=== PATIENT | male | born 1945 | race Caucasian/White ===

== ENCOUNTER 2018-12-05 02:08 | Outpatient (CLI) | payer BC, SELFPAY ==
[2018-12-05 11:59] LABS: Anion Gap 9.7 mmol/L (3-11); BUN 19 mg/dL (7-18); CO2 28.3 mmol/L (21.0-32.0); CREATININE 0.98 mg/dL (0.70-1.30); Calcium 9.4 mg/dL (8.5-10.1); Chloride 103 mmol/L (98-107); Cholesterol 301 mg/dL (50-200); Glucose 98 mg/dL (70-100); HDL Cholesterol 95 mg/dL (40-60); LDL CHOLESTEROL 187 mg/dL (<100); Potassium 4.3 mmol/L (3.5-5.1); Sodium 141 mmol/L (136-145); Triglyceride 76 mg/dL (30-150)
== END 2018-12-05 02:28 ==
PROVIDERS: PCP Family Medicine; Visit Provider Family Medicine
DX: E78.5 Hyperlipidemia, unspecified (principal)
CPT/HCPCS: 36415; 80048; 80061; 83721

== ENCOUNTER 2019-12-04 02:24 | Outpatient (CLI) | payer BC, SELFPAY ==
[2019-12-04 10:56] LABS: Calculated LDL 175 mg/dL (<100); Cholesterol 280 mg/dL (<200); HDL Cholesterol 92 mg/dL (40-60); Triglyceride 65 mg/dL (<150)
== END 2019-12-04 02:44 ==
PROVIDERS: PCP Family Medicine; Visit Provider Family Medicine
DX: E78.5 Hyperlipidemia, unspecified (principal)
CPT/HCPCS: 36415; 80061

== ENCOUNTER 2020-12-15 03:33 | Outpatient (CLI) | payer BC, SELFPAY ==
[2020-12-15 12:33] LABS: HCT 42.1 % (40.0-50.0); MCH 30.4 pg (27.0-33.0); MCHC 33.3 % (32.0-36.0); MCV 91.3 fL (80-95); MPV 11.6 fL (8.0-11.0); Platelet Count 115 10^3/uL (130-400); RBC 4.61 10^6/uL (4.36-5.78); RDW 12.6 % (11.8-14.1); RDW-SD 42.3 fL; WBC 3.99 10^3/uL (4.4-10.8)
[2020-12-15 12:49] LABS: ALT 22 U/L (16-63); AST 23 U/L (15-37); Albumin 3.8 g/dL (3.4-5.0); Alkaline Phosphatase 55 U/L (46-116); Anion Gap 8.3 mmol/L (3-11); BUN 19 mg/dL (7-18); Bilirubin, Total 0.7 mg/dL (0.2-1.0); CO2 27.7 mmol/L (21.0-32.0); CREATININE 1.1 mg/dL (0.70-1.30); Calcium 9.1 mg/dL (8.5-10.1); Calculated LDL 160 mg/dL (<100); Chloride 106 mmol/L (98-107); Cholesterol 257 mg/dL (<200); Glucose 97 mg/dL (74-106); HDL Cholesterol 80 mg/dL (40-60); Potassium 4.2 mmol/L (3.5-5.1); Sodium 142 mmol/L (136-145); Total Protein 7.2 g/dL (6.4-8.2); Triglyceride 86 mg/dL (<150)
== END 2020-12-15 03:34 | disposition home or self-care (01) ==
LOC: LOS 03:34
PROVIDERS: PCP Family Medicine; Visit Provider Nurse Practitioner Family
DX: Z00.00 Encounter for general adult medical examination without abnormal findings (principal); E78.2 Mixed hyperlipidemia
CPT/HCPCS: 36415; 80053; 80061; 85027

== ENCOUNTER 2021-12-21 03:00 | Outpatient (CLI) | payer BC, SELFPAY | END 2021-12-21 03:01 | disposition home or self-care (01) | LOC: LBO 03:00 | PROVIDERS: PCP Family Medicine; Visit Provider Family Medicine ==

== ENCOUNTER 2022-01-12 02:29 | Outpatient (CLI) | payer BC, SELFPAY ==
[2022-01-12 12:27] LABS: Anion Gap 6.3 mmol/L (3-11); BUN 26 mg/dL (7-18); CO2 28.7 mmol/L (21.0-32.0); Calcium 8.9 mg/dL (8.5-10.1); Calculated LDL 187 mg/dL (<100); Chloride 105 mmol/L (98-107); Cholesterol 295 mg/dL (<200); Glucose 97 mg/dL (74-106); HDL Cholesterol 78 mg/dL (40-60); Potassium 4.3 mmol/L (3.5-5.1); Sodium 140 mmol/L (136-145); Triglyceride 153 mg/dL (<150)
== END 2022-01-12 02:30 | disposition home or self-care (01) ==
LOC: LBO 02:29
PROVIDERS: PCP Family Medicine; Visit Provider Family Medicine
DX: Z00.00 Encounter for general adult medical examination without abnormal findings (principal); E78.2 Mixed hyperlipidemia
CPT/HCPCS: 36415; 80048; 80061

== ENCOUNTER 2022-12-26 03:17 | Outpatient (CLI) | payer BC, SELFPAY ==
[2022-12-26 13:09] LABS: Calculated LDL 148 mg/dL (<100); Cholesterol 257 mg/dL (<200); HDL Cholesterol 77 mg/dL (40-60); Triglyceride 161 mg/dL (<150)
[2022-12-26 22:22] LABS: CRP, High Sensitivity 0.48 mg/L (See Note)
== END 2022-12-26 03:18 | disposition home or self-care (01) ==
LOC: LOS 03:17
PROVIDERS: PCP Family Medicine; Visit Provider Family Medicine
DX: E78.2 Mixed hyperlipidemia (principal); Z13.6 Encounter for screening for cardiovascular disorders
CPT/HCPCS: 36415; 80061; 86141

== ENCOUNTER 2025-01-07 02:16 | Outpatient (CLI) | payer BC, SELFPAY ==
[2025-01-07 12:41] LABS: Anion Gap 5.2 mmol/L (3-11); BUN 17 mg/dL (7-18); CO2 29.8 mmol/L (21.0-32.0); CREATININE 1.2 mg/dL (0.70-1.30); Calcium 9.4 mg/dL (8.5-10.1); Calculated LDL 150 mg/dL (<100); Chloride 106 mmol/L (98-107); Cholesterol 278 mg/dL (<200); Glucose 110 mg/dL (74-106); HDL Cholesterol 93 mg/dL (>or=40); Potassium 4.4 mmol/L (3.5-5.1); Sodium 141 mmol/L (136-145); Triglyceride 179 mg/dL (<150)
== END 2025-01-07 02:17 | disposition home or self-care (01) ==
LOC: LOS 02:17
PROVIDERS: PCP Family Medicine; Visit Provider Family Medicine
DX: Z13.6 Encounter for screening for cardiovascular disorders (principal); Z13.1 Encounter for screening for diabetes mellitus
CPT/HCPCS: 36415; 80048; 80061

== ENCOUNTER 2025-03-16 09:32 | Outpatient (CLI) | payer BC, SELFPAY ==
[2025-03-16 18:25] LABS: PSA, Screening 0.5 ng/mL (<=6.5)
== END 2025-03-16 09:33 | disposition home or self-care (01) ==
LOC: LOS 09:33
PROVIDERS: PCP Family Medicine; Visit Provider Nurse Practitioner Family
DX: R35.0 Frequency of micturition (principal)
CPT/HCPCS: 36415; 84153

== ENCOUNTER 2025-04-03 15:53 | Outpatient (REF) | payer BC, SELFPAY ==
[2025-04-03 21:39] LABS: Abs Immature Grans 0.02 10^3/uL (0.0-0.06); HCT 37.0 % (40.0-50.0); HGB 12.8 g/dL (13.5-17.5); Immature Grans % 0.4 %; MCH 31.0 pg (27.0-33.0); MCHC 34.6 % (32.0-36.0); MCV 90 fL (80-95); RBC 4.13 10^6/uL (4.36-5.78); RDW 12.2 % (11.8-14.1); RDW-SD 40.0 fL; WBC 5.30 10^3/uL (4.4-10.8)
[2025-04-03 21:52] LABS: ALT 23 U/L (16-63); AST 19 U/L (15-37); Albumin 3.6 g/dL (3.4-5.0); Alkaline Phosphatase 53 U/L (46-116); Anion Gap 9.8 mmol/L (3-11); BUN 16 mg/dL (7-18); Bilirubin, Total 0.4 mg/dL (0.2-1.0); CO2 27.2 mmol/L (21.0-32.0); Calcium 8.8 mg/dL (8.5-10.1); Chloride 99 mmol/L (98-107); Estimated GFR 90.58 (mL/min/1.73m2); Glucose 139 mg/dL (74-106); Potassium 4.1 mmol/L (3.5-5.1); Sodium 136 mmol/L (136-145); Total Protein 6.4 g/dL (6.4-8.2)
[2025-04-03 21:59] LABS: RBC Morphology Normal
== END 2025-04-03 15:54 | disposition home or self-care (01) ==
LOC: LBN 15:53
PROVIDERS: PCP Family Medicine; Visit Provider Family Medicine
DX: R35.0 Frequency of micturition (principal); Z00.00 Encounter for general adult medical examination without abnormal findings
CPT/HCPCS: 80053; 85025

== ENCOUNTER 2025-04-08 10:25 | Outpatient (CLI) | payer BC, SELFPAY ==
[2025-04-08 14:02] LABS: Ferritin 114 ng/mL (26-388); Vitamin B12 710 pg/mL (193-986)
== END 2025-04-08 10:26 | disposition home or self-care (01) ==
LOC: LOS 10:25
PROVIDERS: PCP Family Medicine; Visit Provider Family Medicine
DX: D64.9 Anemia, unspecified (principal)
CPT/HCPCS: 36415; 82607; 82728